=== PATIENT | male | born 1940 | race Caucasian/White ===

== ENCOUNTER 2021-07-01 11:07 | Observation (INO) ==
[2021-07-01] MEDS ORDERED: Naloxone 0.4 MG/ML INJ IVP PRN ×2 (12:06→16:51)
[2021-07-01] MEDS ORDERED: Ondansetron 4 MG/2 ML VIAL IVP PRN ×2 (12:06→16:51)
[2021-07-01] MEDS ORDERED: Acetaminophen 325 MG TABLET PO PRN ×2 (12:06→16:51)
[2021-07-01] MEDS ORDERED: *HR* HYDROmorphone (PF) 1 MG/ML SYRINGE IVP PRN ×2 (12:29→16:51)
[2021-07-01] MEDS ORDERED: Ringers Solution, Lactated 1,000 ML IVC SCH (13:15)
[2021-07-01] MEDS ORDERED: *HR* FentaNYL (PF) 100 MCG/2 ML VIAL ONE (14:28)
[2021-07-01] MEDS ORDERED: *HR* Propofol 200 MG/20 ML VIAL IVP ONE (14:28)
[2021-07-01] MEDS ORDERED: Ondansetron 4 MG/2 ML VIAL ONE (14:28)
[2021-07-01] MEDS ORDERED: Lidocaine -MPF 2% 5 ML VIAL ONE (14:28)
[2021-07-01] MEDS ORDERED: Isovue-300 50ML VIAL ONE (14:57)
[2021-07-01] MEDS ORDERED: ceFAZolin 2,000 MG in Water for inj. (sterile) 20 ML IVP STA (15:02)
[2021-07-01] MEDS ORDERED: Acetaminophen IV 1,000 MG/100 ML BAG IVPB ONE (15:23)
[2021-07-01] MEDS ORDERED: *HR* HYDROcodone/Acet 10/325 mg TABLET PO PRN (16:51)
[2021-07-01] MEDS: Ringers Solution, Lactated 1,000 ML IVC SCH ×2 (17:06→23:12)
[2021-07-01] MEDS ORDERED: rOPINIRole 0.25 MG TABLET PO ONE (23:30)
[2021-07-02 03:12] VITALS: O2SAT 96
[2021-07-02 06:03] LABS: Basophils % 0.1 %; Eosinophils % 0.1 %; Hematocrit 38.6 % (37.5-50.1); Hemoglobin 12.4 g/dL (12.9-16.9); Immature Granulocytes % 0.4 % (0-4); Lymphocytes % 11.9 %; Mean Corpuscular HGB Conc 32.1 g/dL (31.6-35.5); Mean Corpuscular Hemoglobin 29.4 pg (28.0-33.3); Mean Corpuscular Volume 91.5 fL (83.0-100.0); Mean Platelet Volume 11.6 fL (9.4-12.4); Monocytes # 0.6 K/mcL (0.0-1.3); Neutrophils # 6.4 K/mcL (1.6-8.9); Platelet Count 157 K/mcL (140-400); Red Blood Count 4.22 M/mcL (4.19-5.50); Red Cell Distribution Width 11.9 % (11.5-14.5); Segmented Neutrophils % 79.5 %; White Blood Count 8.1 K/mcL (4.3-11.1)
[2021-07-02 06:14] LABS: Calcium 8.7 mg/dL (8.6-10.3); Magnesium 2.1 mg/dL (1.6-2.6); Potassium 4.2 mEq/L (3.5-5.1)
[2021-07-02 08:14] VITALS: BP 148/77; PULSE 67; TEMP 97.5
[2021-07-02] MEDS ORDERED: Cholecalciferol (D-3) 1,000 UNIT (25MCG) TABLET PO SCH (09:00)
[2021-07-07 13:22] LABS: Calculi Mass 46 mg
== END 2021-07-02 12:26 | disposition home or self-care (01) ==
LOC: EMEROOARM 11:07 → 3ANU 11:07
PROVIDERS: ADMIT Pharmacist; ATTEND Pharmacist